=== PATIENT | female | born 1960 | race Caucasian/White ===

== ENCOUNTER 2016-08-22 10:31 | Emergency (ER) | payer OTHER | END 2016-08-22 12:48 | disposition home or self-care (01) | LOC: ER1 10:31 | DX: M17.12 Unilateral primary osteoarthritis, left knee (principal); I10 Essential (primary) hypertension; E11.9 Type 2 diabetes mellitus without complications; F17.210 Nicotine dependence, cigarettes, uncomplicated; Z88.5 Allergy status to narcotic agent; X58.XXXA Exposure to other specified factors, initial encounter; Z79.82 Long term (current) use of aspirin | CPT/HCPCS: 73564; 99283 ==

== ENCOUNTER → 2021-12-09 | Outpatient (CLI) | payer MEDICARE, OTHER | LOC: MAMO 10:18 | DX: N64.4 Mastodynia (principal) | CPT/HCPCS: 76642-LT; 77066; G0279 ==